=== PATIENT | female | born 1975 | race Caucasian/White ===

== ENCOUNTER 2024-05-09 15:34 | Emergency (ER) | payer BC, SELFPAY ==
[2024-05-09 15:41] VITALS: BP 135/84
[2024-05-09 16:04] LABS: % Basophils 0.5 % (0-2); % Eosinophils 1.3 % (0-6); % Immature Granulocytes 0.3 % (0-0.5); % Lymphocytes 19.4 % (20.5-51.1); % Monocytes 4.7 % (1.7-9.3); % Neutrophils 73.8 % (42.2-75.2); Absolute Eosinophils 0.1 10^3/uL (0-0.7); Absolute Lymphocytes 1.5 10^3/uL (1.2-3.4); Absolute Monocytes 0.4 10^3/uL (0.1-0.6); Absolute Neutrophils 5.7 10^3/uL (1.4-6.5); Hematocrit 39.6 % (37.0-47.0); Hemoglobin 13.3 g/dL (12.0-16.0); Mean Corp Hgb Conc. 33.6 g/dL (33.0-37.0); Mean Corpuscular Hgb 30.9 pg (27.0-31.0); Mean Corpuscular Volume 92.1 fL (81.0-99.0); Mean Platelet Volume 11.3 fL (7.4-10.4); Nucleated Red Blood Cells % 0 %; Platelet Count 211 10^3/uL (130-400); Red Cell Dist. Width 12.1 % (11.5-14.5); White Blood Cell Count 7.7 10^3/uL (4.8-10.8)
[2024-05-09 16:05] LABS: Urine Albumin Negative (Neg - Trace); Urine Bilirubin Negative (Negative); Urine Character Clear (Clear); Urine Color Yellow; Urine Glucose Negative (Negative); Urine Ketone Trace (Negative); Urine Leukocyte 1+ (Negative); Urine Nitrite Negative (Negative); Urine Occult Blood Trace (Negative); Urine Urobilinogen Negative (Neg - 1+)
[2024-05-09 16:15] LABS: Urine Bacteria Moderate (Negative); Urine Mucus Many; Urine Red Blood Cell 0-2 /HPF (0-2)
[2024-05-09 16:20] LABS: ALT (SGPT) 25 U/L (0-35); AST (SGOT) 29 U/L (14-36); Albumin 4.8 g/dl (3.5-5.0); Alkaline Phosphatase 66 U/L (38-126); Blood Urea Nitrogen 21 mg/dl (7-17); Calcium 10.3 mg/dl (8.4-10.2); Carbon Dioxide 27 mmol/L (22-30); Chloride 105 mmol/L (98-107); Glucose 110 mg/dl (70-99); Potassium 3.8 mmol/L (3.5-5.1); Sodium 140 mmol/L (135-145); Total Bilirubin 0.7 mg/dl (0.2-1.3); eGFR > 60.00
[2024-05-09 16:22] LABS: Lipase 97 U/L (23-300)
[2024-05-09 16:31] LABS: Troponin I < 0.012 ng/ml
--- NOTE | 2024-05-09 17:46 | ED.GENMED ---
History of Present Illness
General
Chief Complaint: Rectal Bleeding
Source: patient
Exam Limitations: none
Time Seen by Provider: 05/09/24 16:40
Nursing documentation reviewed up to this point in time: agreed with
History of Present Illness
History of Present Illness:
Patient is a 48-year-old female presents to the ER for evaluation. Patient reports last night around 7:30 PM she had intense abdominal pain went to the bathroom was nauseous and was not sure if she was going to have diarrhea. She sat on the toilet
and started to sweat had abdominal pain and had a witnessed syncopal episode by daughter. She fell forward hit her head into the wall and was out for about 30 seconds to 1 minute. She felt disoriented afterwards and all throughout the night she
had multiple episodes of diarrhea. She reports she had brown diarrhea mixed with bright red blood. She has not had any episodes of diarrhea since 7 AM. She continues to have some abdominal discomfort but symptoms are improving. Mild headache.
She does have a history of diverticulitis but reports this feels different. She denies any fevers. Denies any recent antibiotic use. She denies any nausea vomiting. Denies any urinary frequency urgency or dysuria.
Review of Systems
Review of Systems
Allergies reviewed?: Yes
All Other Systems: ROS reviewed and negative except as documented in HPI and ROS
Constitutional: Reports no symptoms; Denies fever, fatigue or chills
EENT: Reports no symptoms
Respiratory: Reports no symptoms
Cardiac: Reports syncope; Denies chest pain, diaphoresis or palpitations
ABD/GI: Reports abdominal pain, diarrhea and other (blood mixed with brown stools ); Denies vomiting
: Reports no symptoms; Denies dysuria, flank pain, incontinence, urgency or discharge
Musculoskeletal: Reports no symptoms
Skin: Reports no symptoms
Neurological: Reports no symptoms
Psychiatric: Reports no symptoms
Phy Exam
General Physical Exam
General Presentation: well appearing
General age: appears stated age
General Skin: warm and dry
General Habitus: normal
General Mental: alert
General Hydration: appears well hydrated
Cardiovascular Exam
Cardiovascular Exam: regular rate/rhythm, no murmur and normal peripheral pulses
Pulmonary Exam
Pulmonary Exam: lungs clear and no respiratory distress
Gastrointestinal Exam
Gastrointestinal Exam: soft and other (Mild nonspecific tenderness to abdomen no guarding no rebound )
Neurological Exam
Neurological Exam: alert and oriented x3
Musculoskeletal Exam
Musculoskeletal Exam: full ROM and other (Small ecchymosis to forehead no hematoma)
Skin Exam
Skin Exam: normal color and warm/dry
Psychiatric Exam
Psychiatric Exam: normal mood/affect
Course
Orders/Labs/Results
Orders:
Orders
05/09/24 15:47
Electrocardiogram (*1) Urgent
Reason for Study: Chest Pain
IV Insert/Care/Rem.- Treatment PRN
05/09/24 15:48
EKG- Treatment ONCE
05/09/24 15:54
Comprehensive Metabolic Panel Urgent
Lipase Urgent
05/09/24 15:55
Complete Blood Count/With Diff Urgent
Troponin I Urgent
05/09/24 15:58
Urinalysis Reflex To Culture Urgent
Date Specimen was Collected: 05/09/24
Time Specimen was Collected: 15:48
Urine Microscopic Reflex Cult Urgent
Urine Culture Urgent
CHANG Source: U
Specimen Description:
Date Specimen was Collected: 05/09/24
Time Specimen was Collected: 15:48
05/09/24 17:46
CT Abd/pel W Iv And Oral Contr Urgent
Comment:
Reason For Exam: abd pain
CT Head W/o Iv Contrast Urgent
Comment:
Reason For Exam: trauma
Iohexol [Omnipaque] See Protocol PO NOW STA
Abnormal Lab Results
05/09/24 05/09/24 05/09/24
15:54 15:55 15:58
MPV 11.3 H fL
(7.4-10.4)
Lymphocytes % 19.4 L %
(20.5-51.1)
BUN 21 H mg/dl
(7-17)
Glucose 110 H mg/dl
(70-99)
Calcium 10.3 H mg/dl
(8.4-10.2)
Urine Ketones Trace A
(Negative)
Ur Occult Blood Reflex Trace A
(Negative)
Leukocyte Esterase Rfl 1+ A
(Negative)
Urine WBC (Reflex) 11-15 A /HPF
(0-5)
Urine Bacteria (Reflex) Moderate A
(Negative)
05/09/24 15:55
05/09/24 15:54
Vital Signs
Initial and Last Documented VS:
Initial Vital Signs
Temp Pulse Resp BP Pulse Ox
98.2 F 63 18 135/84 99
05/09/24 15:41 05/09/24 15:41 05/09/24 15:41 05/09/24 15:41 05/09/24 15:41
Last Documented Vital Signs
Temp Pulse Resp BP Pulse Ox
98.2 F 67 16 129/77 98
05/09/24 15:41 05/09/24 20:45 05/09/24 20:45 05/09/24 20:45 05/09/24 20:45
Farm Management Teacher consulted with Physician
Farm Management Teacher consulted with physician?: Yes
Name of Physician Consulted: noh
MDM/Problems Addressed
Differential Diagnosis Includes:
Not limited to dehydration, colitis, syncope, C. difficile, viral gastroenteritis, infectious diarrhea less likely diverticulitis, head injury
MDM/Problems Addressed:
Patient is a 48-year-old female who presented to the ER for evaluation. Patient had nausea abdominal discomfort and diarrhea last night began to sweat had a syncopal episode and hit her head. She continued with diarrhea all throughout the night
brown diarrhea mixed with blood. She had a last episode of diarrhea this morning prior to coming to the ER which was light brown color but no blood. She has mild nonspecific abdominal tenderness on exam however no acute distress denies any recent
fevers and is afebrile here with a normal white count stable hemoglobin normal electrolytes. CT of the abdomen shows mid to distal descending colon mild colonic wall thickening consistent with infection/inflammation related to colitis. Patient
only had 1 episode of stool here in the ER, diarrhea but getting better no blood in stool was not collected as patient flushed the toilet. Patient is very well-appearing will give patient a prescription for Augmentin however only to start if
symptoms start to get worse again. She is also given a prescription for stool specimen. I discussed close the patient felt with family doctor as well as GI. She has never had a colonoscopy I discussed the importance of calling to schedule for
evaluation.
Regarding syncope this is likely vagal response from pain. Patient felt nauseous felt like she had to have diarrhea and became sweaty and passed out hitting her head. She has a normal neurologic exam slight bruising to forehead CT head negative no
blood thinners.
No UTI symptoms will send for cx
*Radiology
Radiology exam reviewed: radiology read reviewed
*Pulse Oximetry
Patient hypoxic: no
*Critical Care Note
Total Time (30-74mins, 75-104mins- exclusive of procedures): Not Applicable
ED Attending Note
-
Portions of this chart may have been created with voice recognition software.� Occasional wrong word or��sound alike� substitutions may have occurred due to the inherent limitations of voice recognition software.
Discharge Plan
Departure
Patient Disposition: Home (Routine Discharge)
Date of Disposition: 05/09/24
Time of Disposition: 22:26
Patient with high blood pressure during this ER visit?: Yes
Covid-19: Not Applicable
Discharge Problem:
Colitis
Instructions: Colitis (DC)
Prescriptions:
New
amoxicillin-pot clavulanate 875-125 mg tablet
1 tab PO BID Qty: 20 0RF
No Action
loratadine [Claritin] 10 mg Tablet
10 mg PO DAILY
Referrals:
Susan Larios MD [Family Provider] -
Bernadette Farooq DO [Active] -
Activity Restrictions/Additional Instructions:
Continue to stay well-hydrated. You may start bland solid foods tomorrow. You were given a prescription for Augmentin to start only if symptoms start to worsen. Also you were given a stool specimen and prescription to deliver to local lab.
Follow-up with your family doctor in the next several days for reevaluation. Also follow-up with GI call to make an appointment return if any worsening of symptoms increasing diarrhea, bloody stools abdominal pain nausea vomiting fever chills.
Interventions
Interventions:
*Risk Screen - Suicide Last Done: 05/09/24 18:14
*General Assessment Last Done: 05/09/24 18:14
*Neglect/Abuse Screening Last Done: 05/09/24 18:14
ED- Fall Risk Assessment Last Done: 05/09/24 22:37
*ED COVID-19 Vaccine History Last Done: 05/09/24 18:14
*Nursing Disposition Last Done: 05/09/24 22:37
QA-Ckvfuk-Dbfrjmiwmm Assessment Last Done: 05/09/24 18:14
ED- Cardiac Assessment Last Done: 05/09/24 18:14
ED- Pulmonary Assessment Last Done: 05/09/24 18:14
Discharge Date and Time
Discharge Date/Time: 05/09/24 22:37
Print Language: MACANESE
[2024-05-09] MEDS: OMNIPAQUE 50 ML PO (18:01)
[2024-05-09 20:45] VITALS: BP 129/77
--- NOTE | 2024-05-09 20:46 | EDRN ---
Report received, introduced myself to patient who is resting comfortably, just back from CT and aware we are waiting on results
--- NOTE | 2024-05-09 22:12 | EDRN ---
Updated patient on delay, resting comfortably with visitor at bedside
--- NOTE | 2024-05-09 22:18 | EDRN ---
GRETA Kirkpatrick in at bedside speaking with patient about results
== END 2024-05-09 22:37 | disposition home or self-care (01) ==
LOC: EMR 15:34
PROVIDERS: EMERGENCY PHYSICIAN Emergency Medicine; FAMILY PHYSICIAN Family Medicine
DX: K52.9 Noninfective gastroenteritis and colitis, unspecified (principal)
CPT/HCPCS: 99284; 70450; 74177; 80053; 81003; 81015; 83690; 84484; 85025; 87086; 93005; Q9967

== ENCOUNTER → 2024-08-15 06:28 | Day surgery (SDC) | payer BC, SELFPAY | LOC: GI 06:28 | PROVIDERS: ATTENDING PHYSICIAN Internal Medicine; FAMILY PHYSICIAN Family Medicine | DX: Z12.11 Encounter for screening for malignant neoplasm of colon (principal); R93.3 Abnormal findings on diagnostic imaging of other parts of digestive tract; K92.1 Melena; K57.30 Diverticulosis of large intestine without perforation or abscess without bleeding; K64.8 Other hemorrhoids | CPT/HCPCS: 45380; 88305 ==

== ENCOUNTER 2025-04-21 21:54 | Emergency (ER) | payer BC, SELFPAY ==
[2025-04-21 21:59] VITALS: BP 123/88
--- NOTE | 2025-04-21 22:23 | ED.GENMED ---
History of Present Illness
General
Chief Complaint: Skin Problem
Source: patient
Exam Limitations: none
Time Seen by Provider: 04/21/25 22:15
Nursing documentation reviewed up to this point in time: agreed with
History of Present Illness
History of Present Illness:
Patient to ED wt complaint of erythema and blisterl to left breast. Dx with breast CA in 2016. Had bilateral mastectomies with reconstruction. States she had a left implant rupture in 2018. She had implant removed and then replaced. States
approx 2 years after that she developed an infection to left breast. States she was hospitalized and on IV antibiotics to treat. No further issues until today. No history of trauma. Denies fever but reports chills although she did sustain
sunburn to her arms. Brought self to ED for eval.
If applicable-neuro sx onset
Time pt last seen normal is known: No
Past History
Past History
ED Past Medical History: Cancer (breast)
ED Past Surgical History: Other (Bilateral mastectomy with reconstruction)
Review of Systems
Review of Systems
Allergies reviewed?: Yes
All Other Systems: ROS reviewed and negative except as documented in HPI and ROS
Constitutional: Reports no symptoms
EENT: Reports no symptoms
Respiratory: Reports no symptoms
Cardiac: Reports no symptoms
ABD/GI: Reports no symptoms
Musculoskeletal: Reports no symptoms
Skin: Reports other (erythema left breast wth blister.)
Neurological: Reports no symptoms
Psychiatric: Reports no symptoms
Phy Exam
General Physical Exam
General Presentation: well appearing and no apparent distress
General age: appears stated age
General Skin: warm and dry
General Habitus: normal
Musculoskeletal Exam
Musculoskeletal Exam: full ROM and neuro vasc intact
Skin Exam
Skin Exam: other (erythema to left breast over mastectomy incision. No drainage. Intact blister at site. )
Psychiatric Exam
Psychiatric Exam: normal mood/affect
Course
Orders/Labs/Results
Orders:
Orders
04/21/25 22:43
Complete Blood Count/With Diff Urgent
Comprehensive Metabolic Panel Urgent
Lactic Acid Urgent
04/21/25 23:38
Cephalexin Monohydrate [Keflex] 500 mg PO NOW STA
Abnormal Lab Results
04/21/25
22:43
RBC 4.01 L 10^6/uL
(4.20-5.40)
Hct 36.4 L %
(37.0-47.0)
MCH 31.7 H pg
(27.0-31.0)
MPV 11.1 H fL
(7.4-10.4)
Chloride 109 H mmol/L
(98-107)
Glucose 125 H mg/dl
(70-99)
04/21/25 22:43
04/21/25 22:43
Vital Signs
Initial and Last Documented VS:
Initial Vital Signs
Temp Pulse Resp BP Pulse Ox
98.4 F 69 18 123/88 99
04/21/25 21:59 04/21/25 21:59 04/21/25 21:59 04/21/25 21:59 04/21/25 21:59
Last Documented Vital Signs
Temp Pulse Resp BP Pulse Ox
98.4 F 54 16 111/83 98
04/21/25 21:59 04/21/25 22:45 04/21/25 22:45 04/21/25 22:44 04/21/25 22:45
*Critical Care Note
Total Time (30-74mins, 75-104mins- exclusive of procedures): Not Applicable
Update Note
Update Note:
Patient to ED with complaint of erythema and a blisterl to left breast at site of old mastectomy incision. SHe did have an infection to this breast in 2019. She remains afebrile. WBC and lactic are normal. There is no swelling to site, no
evidence of abscess. Will start Keflex tonight and discharge home. She will follow up wth her breast surgeon tomorrow. Given instructions on s/s to return to ED and she is agreable to plan.
ED Attending Note
-
Portions of this chart may have been created with voice recognition software.� Occasional wrong word or��sound alike� substitutions may have occurred due to the inherent limitations of voice recognition software.
Discharge Plan
Departure
Patient Disposition: Home (Routine Discharge)
Date of Disposition: 04/21/25
Time of Disposition: 23:39
Patient with high blood pressure during this ER visit?: No
Condition: Good
Covid-19: Not Applicable
Discharge Problem:
Cellulitis of breast
Instructions: Cellulitis (Skin Infection), Adult (DC)
Prescriptions:
New
cephalexin 500 mg capsule
500 mg PO Q6H 10 Days Qty: 40 0RF
No Action
loratadine [Claritin] 10 mg Tablet
10 mg PO DAILY
amoxicillin-pot clavulanate 875-125 mg tablet
1 tab PO BID Qty: 20 0RF
Activity Restrictions/Additional Instructions:
Follow up with your breast surgeon in the AM. Return to the emergency department immediately for any changes in/worsening of your symptoms.
Interventions
Interventions:
*Risk Screen - Suicide Last Done: 04/21/25 21:59
*General Assessment Last Done: 04/21/25 21:59
*Neglect/Abuse Screening Last Done: 04/21/25 21:59
*ED- Fall Risk Assessment Last Done: 04/21/25 22:02
*ED COVID-19 Vaccine History Last Done: 04/21/25 22:02
ED-Skin Assessment Last Done: 04/21/25 22:32
Discharge Date and Time
Print Language: PASHTO
[2025-04-21 22:44] VITALS: BP 111/83
[2025-04-21 22:51] LABS: % Eosinophils 3.8 % (0-6); % Immature Granulocytes 0.2 % (0-0.5); % Lymphocytes 30.6 % (20.5-51.1); % Monocytes 5.9 % (1.7-9.3); % Neutrophils 58.5 % (42.2-75.2); Absolute Basophils 0.1 10^3/uL (0-0.2); Absolute Eosinophils 0.2 10^3/uL (0-0.7); Absolute Lymphocytes 1.6 10^3/uL (1.2-3.4); Absolute Monocytes 0.3 10^3/uL (0.1-0.6); Absolute Neutrophils 3.1 10^3/uL (1.4-6.5); Hematocrit 36.4 % (37.0-47.0); Hemoglobin 12.7 g/dL (12.0-16.0); Mean Corp Hgb Conc. 34.9 g/dL (33.0-37.0); Mean Corpuscular Hgb 31.7 pg (27.0-31.0); Mean Corpuscular Volume 90.8 fL (81.0-99.0); Mean Platelet Volume 11.1 fL (7.4-10.4); Nucleated Red Blood Cells % 0 %; Platelet Count 202 10^3/uL (130-400); Red Blood Cell Count 4.01 10^6/uL (4.20-5.40); Red Cell Dist. Width 11.9 % (11.5-14.5); White Blood Cell Count 5.2 10^3/uL (4.8-10.8)
[2025-04-21 23:11] LABS: Lactic Acid 0.8 mmol/L (0.7-2.0)
[2025-04-21 23:25] LABS: ALT (SGPT) 13 U/L (0-35); AST (SGOT) 21 U/L (14-36); Albumin 4.5 g/dl (3.5-5.0); Alkaline Phosphatase 54 U/L (38-126); Blood Urea Nitrogen 11 mg/dl (7-17); Calcium 10.1 mg/dl (8.4-10.2); Carbon Dioxide 27 mmol/L (22-30); Chloride 109 mmol/L (98-107); Glucose 125 mg/dl (70-99); Potassium 4.3 mmol/L (3.5-5.1); Sodium 142 mmol/L (135-145); Total Bilirubin 0.6 mg/dl (0.2-1.3); Total Protein 6.6 g/dl (6.3-8.2); eGFR > 60.00
[2025-04-21] MEDS: KEFLEX 500 MG PO (23:45)
[2025-04-21 23:46] VITALS: BP 107/76
== END 2025-04-21 23:57 | disposition home or self-care (01) ==
LOC: EMR 21:54
PROVIDERS: Nurse Practitioner; EMERGENCY PHYSICIAN Emergency Medicine; FAMILY PHYSICIAN Family Medicine
DX: N61.0 Mastitis without abscess (principal); Z90.13 Acquired absence of bilateral breasts and nipples; Z85.3 Personal history of malignant neoplasm of breast
CPT/HCPCS: 99283; 80053; 83605; 85025

== ENCOUNTER → 2025-04-28 08:21 | Outpatient (REF) | payer BC, SELFPAY | LOC: WDC 08:21 | PROVIDERS: ATTENDING PHYSICIAN Surgery; FAMILY PHYSICIAN Family Medicine | DX: N64.59 Other signs and symptoms in breast (principal); L98.8 Other specified disorders of the skin and subcutaneous tissue; N63.32 Unspecified lump in axillary tail of the left breast | CPT/HCPCS: 76642 ==

== ENCOUNTER → 2025-09-28 07:20 | Outpatient (REF) | payer BC, SELFPAY | LOC: RAD 07:20 | PROVIDERS: ATTENDING PHYSICIAN Surgery Plastic and Reconstructive Surgery; FAMILY PHYSICIAN Family Medicine | DX: Z85.3 Personal history of malignant neoplasm of breast (principal); Z90.13 Acquired absence of bilateral breasts and nipples | CPT/HCPCS: 74174; Q9967 ==

== ENCOUNTER 2025-11-09 22:39 | Emergency (ER) | payer BC, SELFPAY ==
[2025-11-09 22:42] VITALS: BP 132/81
--- NOTE | 2025-11-10 00:27 | ED.MUSCINJ ---
HPI-Injury
General
Chief Complaint: Fall
Source: patient
Exam Limitations: none
Time Seen by Provider: 11/09/25 23:15
Nursing documentation reviewed up to this point in time: agreed with
History of Present Illness-Injury
Is this injury a work related problem?: No
Is pt an associate of [facility]/[place]?: No
Initial Injury comments:
Patient to the emergency department after slip and fall on ice. She complains of pain to left wrist and lateral hand. Injury occurred just prior to arrival.
Past History
Past History
ED Past Medical History: Cancer (breast)
ED Past Surgical History: Other (Bilateral mastectomy with reconstruction)
Review of Systems
Review of Systems
Allergies reviewed?: Yes
All Other Systems: ROS reviewed and negative except as documented in HPI and ROS
Constitutional: Reports no symptoms
EENT: Reports no symptoms
Respiratory: Reports no symptoms
Cardiac: Reports no symptoms
ABD/GI: Reports no symptoms
Musculoskeletal: Reports joint pain (Pain to left lateral hand and wrist)
Skin: Reports no symptoms
Neurological: Reports no symptoms
Psychiatric: Reports no symptoms
Musculoskeletal Injury Exam
Musculoskeletal Injury Exam
Left Wrist:
Pain with Movement?: Moderate
Tender to palpation?: Moderate
Soft tissue swelling?: Mild
External deformity and angulation?: None
Joint effusion?: None
Contusion?: Moderate
Hematoma-local bleeding into tissue?: None
Strain- Sprain- Tear (Connective tissue injury)?: Moderate
Crepitus with movement?: No
Joint instability?: No
Malalignment/deformity?: No
Range of motion: Limited
Distal skin color and temperature: normal-warm & good color
Capillary Refill: normal
Normal distal neurovascular exam?: Yes
Peripheral Pulses: radial (left): 3+
Left Lateral Hand:
Pain with Movement?: Moderate
Tender to palpation?: Moderate
Soft tissue swelling?: None
External deformity and angulation?: None
Joint effusion?: None
Contusion?: Moderate
Hematoma-local bleeding into tissue?: None
Strain- Sprain- Tear (Connective tissue injury)?: None
Crepitus with movement?: No
Joint instability?: No
Malalignment/deformity?: No
Range of motion: Limited
Distal skin color and temperature: normal-warm & good color
Capillary Refill: normal
Normal distal neurovascular exam?: Yes
Phy Exam
General Physical Exam
General Presentation: well appearing and mild distress
General age: appears stated age
General Skin: warm and dry
General Habitus: normal
General Mental: alert
Neurological Exam
Neurological Exam: alert, oriented x3, CN II-XII intact, no motor deficits and no sensory deficits
Musculoskeletal Exam
Musculoskeletal Exam: neuro vasc intact and other (Full range of motion to shoulder and elbow.)
Skin Exam
Skin Exam: normal color, warm/dry and no rash
Psychiatric Exam
Psychiatric Exam: normal mood/affect
Injury Course
Orders/Labs/Results
Orders:
Orders
11/10/25 00:05
CR Hand - Left Min 3 Views Urgent
Reason For Exam: fall
CR Wrist - Left Min 3 Views Urgent
Reason For Exam: fall
11/10/25 00:19
Sling Left-Treatment ONCE
Volar Left-Treatment ONCE
*Radiology
Radiology exam reviewed: radiology read reviewed
*Pulse Oximetry
SaO2: 97
Oxygen Mode of Delivery: Room air
Patient hypoxic: no
*Critical Care Note
Total Time (30-74mins, 75-104mins- exclusive of procedures): Not Applicable
Update Note
Update Note:
Patient to the emergency department for evaluation of left wrist and hand pain after slip and fall on ice. Incident occurred just prior to arrival. Left wrist with mild swelling noted. Neurovascularly intact. Limited range of motion due to pain.
X-ray of wrist and hand was completed. X-ray confirms an avulsion fracture of the triquetrium. Discussed findings with her. She was placed in a splint and sling. She will be discharged home and will follow-up with orthopedics.
ED Attending Note
-
Portions of this chart may have been created with voice recognition software.� Occasional wrong word or��sound alike� substitutions may have occurred due to the inherent limitations of voice recognition software.
Discharge Plan
Departure
Patient Disposition: Home (Routine Discharge)
Date of Disposition: 11/10/25
Time of Disposition: 00:25
Patient with high blood pressure during this ER visit?: No
Condition: Good
Covid-19: Not Applicable
Discharge Problem:
Fracture of wrist
Instructions: How to use a shoulder sling, Cold therapy for pain, Splint care - ED (DC), Ibuprofen, Wrist Fracture
Prescriptions:
No Action
loratadine [Claritin] 10 mg Tablet
10 mg PO DAILY
amoxicillin-pot clavulanate 875-125 mg tablet
1 tab PO BID Qty: 20 0RF
cephalexin 500 mg capsule
500 mg PO Q6H 10 Days Qty: 40 0RF
Referrals:
Michael Pat MD [Active, Orthopedics] - Call in 1-3 days for appt
Susan Larios MD [Family Provider, Family Practice]
Interventions
Interventions:
*General Assessment Last Done: 11/09/25 22:44
*Neglect/Abuse Screening Last Done: 11/09/25 22:44
*ED COVID-19 Vaccine History Last Done: 11/09/25 22:44
*ED Influenza Vaccine History Last Done: 11/09/25 22:44
[facility] Fall Risk Assessment Tool Last Done: 11/09/25 23:41
*Risk Screen - Suicide (C-SSRS) Last Done: 11/09/25 22:44
*Nursing Disposition Last Done: 11/10/25 01:08
ED-Musculoskeletal Assessment Last Done: 11/09/25 23:38
ED- Neurological Assessment Last Done: 11/09/25 23:38
ED-Skin Assessment Last Done: 11/09/25 23:38
Discharge Date and Time
Discharge Date/Time: 11/10/25 01:09
Print Language: FILIPINO
== END 2025-11-10 01:09 | disposition home or self-care (01) ==
LOC: EMR 22:39
PROVIDERS: EMERGENCY PHYSICIAN Emergency Medicine; FAMILY PHYSICIAN Family Medicine
DX: S62.102A Fracture of unspecified carpal bone, left wrist, initial encounter for closed fracture (principal); W00.0XXA Fall on same level due to ice and snow, initial encounter; Z85.3 Personal history of malignant neoplasm of breast; Z90.13 Acquired absence of bilateral breasts and nipples
CPT/HCPCS: 99283; 29125; 73110; 73130